=== PATIENT | male | born 1990 | race Caucasian/White ===

== ENCOUNTER 2016-12-13 02:06 | Emergency (ER) | payer OTHER ==
[2016-12-13 02:12] VITALS: RESP 16; TEMP 98.1
--- NOTE | 2016-12-13 02:25 | EDPHY ---
H & P Stated Complaint: can't sleep, anxiety, diaphoresis HPI/ROS: HPI CHIEF COMPLAINT: Anxiety HISTORY OF PRESENT ILLNESS: This patient 26-year-old male who presents emergency room stating that he cannot sleep tonight he has felt very anxious, could not get to sleep. Racing thoughts. He states that been very worried about his blood pressure. He states he has been taking a continuously over 10 times today in 10 times yesterday. He has been getting readings in the 130s over 100s. States this is high for him. This is causing a great deal of anxiety. Does have underlying anxiety disorder and typically takes Xanax and clonazepam however he has been not taking this medication because he thinks it may be affecting his liver. 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 Patient is specifically requesting an EKG. Past Medical History: Anxiety, Pacific Disease. Past Surgical History: Denies recent surgical history Social History: History of alcohol use, denies drug use or tobacco. Denies current use of alcohol Family History: Noncontributory ROS REVIEW OF SYSTEMS: A comprehensive 10 point review of systems is otherwise negative aside from elements mentioned in the history of present illness. Exam Constitutional appears well nontoxic triage nursing summary reviewed, vital signs reviewed, awake/alert. Eyes normal conjunctivae and sclera, EOMI, PERRLA. HENT normal inspection, atraumatic, moist mucus membranes, no epistaxis, neck supple/ no meningismus, no raccoon eyes. Respiratory clear to auscultation bilaterally, normal breath sounds, no respiratory distress, no wheezing. Cardiovascular rate normal, regular rhythm, no murmur, no edema, distal pulses normal. Gastrointestinal soft, non-tender, no rebound, no guarding, normal bowel sounds, no distension, no pulsatile mass. Genitourinary no CVA tenderness. Musculoskeletal no midline vertebral tenderness, full range of motion, no calf swelling, no tenderness of extremities, no meningismus, good pulses, neurovascularly intact. Skin pink, warm, & dry, no rash, skin atraumatic. Neurologic awake, alert and oriented x 3, AAOx3, moves all 4 extremities equally, motor intact, sensory intact, CN II-XII intact, normal cerebellar, normal vision, normal speech. Psychiatric normal mood/affect. Heme/Lymph/Immune no lymphadenopathy. Differential Diagnosis: Includes but is not limited to in a particular order acute anxiety, anxiety causing hypertension, underlying essential hypertension Medical Decision Making: Plan for this patient will perform EKG at patient's request however he does not have any chest pain or shortness of breath. Patient is refusing any anxiety medicine here in the emergency room. He would like an EKG and his blood pressure checked. Re-evaluation: EKG interpretation by me on record in [employer] [facility] system. Impression time of EKG 2:40 a.m., this is sinus rhythm rate of 68 there is no acute ischemic change appreciated. Specifically no ST elevation, ST depression, T-wave abnormalities prolonged intervals. This is an unremarkable EKG. Nonischemic. 0320AM: Patient's repeat blood pressure 120/88. Resting comfortably no complaints. Safe for discharge. He understands follow-up with his primary care doctor. Also recommend that he may benefit from a low-dose antidepressant or being back on his anxiety medicine to help with his anxiety. He understands this. He is comfortable being discharged. He denies any focal complaints at this time. Source: Patient - Personal History Current Tetanus/Diphtheria Vaccine: Yes Current Tetanus Diphtheria and Acellular Pertussis (TDAP): Yes Tetanus Vaccine Date: 2014 - Medical/Surgical History Hx Asthma: Yes Hx Chronic Respiratory Disease: No Hx Diabetes: No Hx Cardiac Disease: No Hx Renal Disease: No Hx Cirrhosis: No Hx Alcoholism: Yes Hx HIV/AIDS: No Hx Splenectomy or Spleen Trauma: No Other PMH: anxiety, asthma, Alcoholism - Social History Smoking Status: Never smoked Constitutional: Initial Vital Signs Temperature (C) 36.7 C 12/13/16 02:10 Heart Rate 85 12/13/16 02:10 Respiratory Rate 16 12/13/16 02:10 Blood Pressure 150/97 H 12/13/16 02:10 O2 Sat (%) 96 12/13/16 02:10 O2 Delivery Mode Room Air Allergies/Adverse Reactions: cefuroxime axetil [From Ceftin] Allergy (Verified 08/24/15 21:22) Departure - Departure Disposition: Home, Routine, Self-Care Clinical Impression: Anxiety Condition: Good Instructions: Anxiety (ED) Additional Instructions: 1.I would recommend checking her blood pressure twice a day once in the morning at 9:00 a.m. once at night 9:00 p.m. and recording it. If you continue to get significant high readings for herself I would follow up with her primary care doctor. 2. Also additionally I would make sure that you feel as if her anxiety is well controlled and not contributing to your blood pressure. Referrals: Gilbert Caldera MD [Primary Care Provider] - As per Instructions
--- NOTE | 2016-12-13 02:42 | CPEKG ---
Heart Rate: 68 RR Interval: 882 P-R Interval: 168 QRSD Interval: 86 QT Interval: 388 QTC Interval: 413 P Hiland: 69 QRS Hiland: 73 T Wave Hiland: 48 EKG Severity - NORMAL ECG - EKG Impression: SINUS RHYTHM Electronically Signed By: William Ocasio 15-Dec-2016 14:31:22
[2016-12-13 03:15] VITALS: BP 120/88; PULSE 66; O2SAT 97
== END 2016-12-13 03:29 | disposition home or self-care (01) ==
DX: F41.9 Anxiety disorder, unspecified (principal); J45.909 Unspecified asthma, uncomplicated